=== PATIENT | female | born 1950 | race Two or more races ===

== ENCOUNTER 2017-01-08 08:08 | Outpatient (CLI) | payer OTHER ==
[~2017-01-08 08:08] MED LIST: COZAAR100 MG; DECADRON P4 MG/ML-1M IH; FIORICET TABLET1 TAB; LEVAQUIN750 MG PO; MICARDIS40 MG; NEURONTIN300 MG PO; PROTONIX40 MG; SYNTHROID50 MCG; TORADOL60 MG IM; TUSSI PRES-B L120 M1 PO; ULTRACET PO; VOLTAREM 50 MG PO
== END 2017-01-08 08:24 | disposition home or self-care (01) ==
LOC: MRI 08:08
DX: M54.2 Cervicalgia (principal); M54.6 Pain in thoracic spine; M54.5 Low back pain; M81.0 Age-related osteoporosis without current pathological fracture; Z12.13 Encounter for screening for malignant neoplasm of small intestine; N63.11 Unspecified lump in the right breast, upper outer quadrant; N63.10 Unspecified lump in the right breast, unspecified quadrant; E03.8 Other specified hypothyroidism; E04.1 Nontoxic single thyroid nodule; E04.2 Nontoxic multinodular goiter; Z12.31 Encounter for screening mammogram for malignant neoplasm of breast; N60.12 Diffuse cystic mastopathy of left breast; N60.11 Diffuse cystic mastopathy of right breast
CPT/HCPCS: 72146; 72148; 76641; 77080; G0202

== ENCOUNTER → 2017-04-10 | Emergency (ER) | payer OTHER ==
[~2017-04-10] VITALS: Ht 157.5 cm; Wt 88.5 kg
[~2017-04-10] MED LIST changes: +BRILINTA90 MG; +COZAAR100 MG PO; +MEDROLPACK PO; +SYNTHROID50 MCG PO
== END | disposition home or self-care (01) ==
LOC: ER 13:07
DX: M54.2 Cervicalgia (principal); G89.29 Other chronic pain; M79.602 Pain in left arm

== ENCOUNTER 2017-07-09 12:40 | Outpatient (CLI) | payer OTHER | END 2017-07-09 13:07 | disposition home or self-care (01) | LOC: LAB 12:40 | DX: A37.90 Whooping cough, unspecified species without pneumonia (principal) ==

== ENCOUNTER 2017-07-25 11:42 | Emergency (ER) | payer OTHER ==
[~2017-07-25] VITALS: Ht 157.5 cm; Wt 95.3 kg
[2017-07-25] MEDS ORDERED: PROVENTIL S2 MG/5 ML (12:11)
[2017-07-25] MEDS ORDERED: RAYOS1 MG (12:12)
[2017-07-25] MEDS ORDERED: SYMBICORT 16010.2 GM (12:12)
[2017-07-25] MEDS ORDERED: LEVAQUIN500 MG (12:13)
[2017-07-25] MEDS ORDERED: PROMETH-CODEIN 65 ML PO (15:06)
== END 2017-07-25 15:50 | disposition home or self-care (01) ==
LOC: ER 11:42
DX: R05 Cough (principal); J11.1 Influenza due to unidentified influenza virus with other respiratory manifestations

== ENCOUNTER 2017-09-09 09:50 | Emergency (ER) | payer OTHER ==
[~2017-09-09] VITALS: Ht 157.5 cm; Wt 93.0 kg
[~2017-09-09 09:50] MED LIST changes: +LEVAQUIN500 MG; +PROMETH-CODEIN 65 ML PO; +PROVENTIL S2 MG/5 ML; +RAYOS1 MG; +SYMBICORT 16010.2 GM
[2017-09-09] MEDS ORDERED: JANUVIA25 MG (10:14)
== END 2017-09-09 12:47 | disposition home or self-care (01) ==
LOC: ER 09:50
DX: S33.5XXA Sprain of ligaments of lumbar spine, initial encounter (principal); X50.0XXA Overexertion from strenuous movement or load, initial encounter; Y93.89 Activity, other specified; Y92.89 Other specified places as the place of occurrence of the external cause; Y99.8 Other external cause status

== ENCOUNTER 2017-09-19 08:44 | Outpatient (CLI) | payer OTHER ==
[~2017-09-19 08:44] MED LIST changes: +JANUVIA25 MG
== END 2017-09-19 08:51 | disposition home or self-care (01) ==
LOC: MRI 08:44
DX: M54.5 Low back pain (principal)
CPT/HCPCS: 72148

== ENCOUNTER 2017-09-22 12:50 | Emergency (ER) | payer OTHER ==
[~2017-09-22] VITALS: Ht 157.5 cm; Wt 88.5 kg
== END 2017-09-22 14:51 | disposition home or self-care (01) ==
LOC: ER 12:50
DX: G89.11 Acute pain due to trauma (principal); M54.5 Low back pain

== ENCOUNTER 2017-10-01 09:56 | Outpatient (CLI) | payer OTHER | END 2017-10-01 09:57 | disposition home or self-care (01) | LOC: LAB 09:56 → RAD 09:56 → LAB 09:57 | DX: E11.8 Type 2 diabetes mellitus with unspecified complications (principal); D68.8 Other specified coagulation defects ==

== ENCOUNTER 2017-10-08 11:49 | Day surgery (SDC) | payer OTHER | END 2017-10-08 18:00 | disposition home or self-care (01) | LOC: CIR.AMB 11:49 | DX: S32.058A Other fracture of fifth lumbar vertebra, initial encounter for closed fracture (principal) ==

== ENCOUNTER 2017-12-02 07:17 | Outpatient (CLI) | payer OTHER | END 2017-12-02 07:43 | disposition home or self-care (01) | LOC: NUCLEAR 07:17 | DX: I11.9 Hypertensive heart disease without heart failure (principal); E11.9 Type 2 diabetes mellitus without complications; I25.10 Atherosclerotic heart disease of native coronary artery without angina pectoris | CPT/HCPCS: 78452; 93017; A9500; J0153 ==

== ENCOUNTER 2018-02-10 10:07 | Outpatient (CLI) | payer OTHER | END 2018-02-10 14:25 | disposition home or self-care (01) | LOC: NUCLEAR 10:07 | DX: M54.5 Low back pain (principal) | CPT/HCPCS: 78306; 78320; A9503 ==

== ENCOUNTER → 2018-05-11 | Outpatient (CLI) | payer OTHER | END | disposition home or self-care (01) | LOC: RAD 501 14:15 | DX: J44.1 Chronic obstructive pulmonary disease with (acute) exacerbation (principal) ==

== ENCOUNTER 2018-08-18 13:31 | Outpatient (CLI) | payer OTHER | END 2018-08-18 14:59 | disposition home or self-care (01) | LOC: MRI 13:31 | DX: M79.622 Pain in left upper arm (principal) | CPT/HCPCS: 73221 ==

== ENCOUNTER 2018-09-18 15:40 | Emergency (ER) | payer OTHER ==
[~2018-09-18] VITALS: Ht 157.5 cm; Wt 74.8 kg
== END 2018-09-18 19:51 | disposition home or self-care (01) ==
LOC: ER 15:40
DX: M75.52 Bursitis of left shoulder (principal); M51.16 Intervertebral disc disorders with radiculopathy, lumbar region

== ENCOUNTER 2019-08-03 07:48 | Outpatient (CLI) | payer OTHER | END 2019-08-03 07:49 | disposition home or self-care (01) | LOC: MRI 07:48 | PROVIDERS: ATTEND Internal Medicine | DX: M54.2 Cervicalgia (principal) | CPT/HCPCS: 72141 ==

== ENCOUNTER 2020-12-11 07:01 | Day surgery (SDC) | payer OTHER ==
[~2020-12-11 07:01] MED LIST changes: +HYDRODIURIL12.5 MG PO; +PROTONIX20 MG PO
[2020-12-11] MEDS ORDERED: ULTRAM50 MG PO (12:30)
[2020-12-11] MEDS ORDERED: DUI500 PO (12:30)
== END 2020-12-11 17:40 | disposition home or self-care (01) ==
LOC: CIR.AMB 07:01
PROVIDERS: ATTEND Orthopaedic Surgery Sports Medicine
DX: M23.321 Other meniscus derangements, posterior horn of medial meniscus, right knee (principal); Z20.822 Contact with and (suspected) exposure to COVID-19

== ENCOUNTER 2021-05-14 09:20 | Day surgery (SDC) | payer OTHER ==
[~2021-05-14 09:20] MED LIST changes: +ADULT LOW DOSE81 M1 PO; +DUI500 PO; +JANUVIA100 MG PO; +SYNTHROID75 MCG PO; +ULTRAM50 MG PO
[2021-05-14] MEDS ORDERED: ULTRACET PO (15:27)
[2021-05-14] MEDS ORDERED: DUI500 PO (15:27)
== END 2021-05-14 19:45 | disposition home or self-care (01) ==
LOC: CIR.AMB 09:20
PROVIDERS: ATTEND Orthopaedic Surgery Sports Medicine
DX: S83.241A Other tear of medial meniscus, current injury, right knee, initial encounter (principal); M17.11 Unilateral primary osteoarthritis, right knee; Z91.013 Allergy to seafood; I10 Essential (primary) hypertension; G43.909 Migraine, unspecified, not intractable, without status migrainosus; E66.01 Morbid (severe) obesity due to excess calories; I87.2 Venous insufficiency (chronic) (peripheral)

== ENCOUNTER 2021-06-29 15:45 | Emergency (ER) | payer OTHER ==
[~2021-06-29] VITALS: Ht 157.5 cm; Wt 90.7 kg
[2021-06-29] MEDS ORDERED: BENZONATATE200 M1 PO (20:39)
[2021-06-29] MEDS ORDERED: MEDROLPACK PO (20:39)
== END 2021-06-29 21:13 | disposition home or self-care (01) ==
LOC: ER 15:45
DX: B34.9 Viral infection, unspecified (principal); R51.9 Headache, unspecified; R09.3 Abnormal sputum; I10 Essential (primary) hypertension; E03.9 Hypothyroidism, unspecified; E11.8 Type 2 diabetes mellitus with unspecified complications; Z79.899 Other long term (current) drug therapy; Z91.013 Allergy to seafood

== ENCOUNTER 2022-06-14 12:06 | Emergency (ER) | payer OTHER ==
[~2022-06-14] VITALS: Ht 157.5 cm; Wt 90.7 kg
[~2022-06-14 12:06] MED LIST changes: +BENZONATATE200 M1 PO
== END 2022-06-14 16:01 | disposition home or self-care (01) ==
LOC: ER 12:06
DX: L72.8 Other follicular cysts of the skin and subcutaneous tissue (principal); Z91.013 Allergy to seafood; E11.9 Type 2 diabetes mellitus without complications; Z79.84 Long term (current) use of oral hypoglycemic drugs; I10 Essential (primary) hypertension